=== PATIENT | male | born 1975 | race Caucasian/White ===

== ENCOUNTER 2024-07-08 10:29 | Inpatient (IN) | payer SELFPAY ==
[~2024-07-08 10:29] MED LIST: Iopamidol-370 76% 500 ML MDV (1 ML CHARGE) ONE
[2024-07-08 11:45] LABS: #Basophils 0.06 10x3/uL (0.0-0.2); #Eosinophils Less than 0.03 10x3/uL (0.0-0.7); %Basophils 0.4 % (0.0-1.0); %Eosinophils 0.1 % (0.0-10.0); %Lymphocytes 6.7 % (21.0-51.0); %Monocytes 7.9 % (0.0-10.0); %Neutrophils 84.4 % (42.0-75.0); Hematocrit 46.2 % (42.0-52.0); Hemoglobin 16.3 g/dL (14.0-18.0); Mean Corpuscular HGB CONC 35.3 g/dL (32.0-36.0); Mean Corpuscular Hemoglobin 29.5 pg (27.0-31.0); Mean Corpuscular Volume 83.7 fL (78.0-98.0); Mean Platelet Volume 10.1 fL (7.4-10.4); Platelet Count 291 10x3/uL (130-400); Red Blood Cell (RBC) Count 5.52 mill/uL (4.70-6.10)
[2024-07-08 12:05] LABS: ALT (SGPT) 14 U/L (8-55); AST (SGOT) 9 U/L (5-34); Albumin 3.5 g/dL (3.5-5.0); Alkaline Phosphatase 99 U/L (40-110); Anion Gap 20 mmol/L (10-20); BUN (Urea Nitrogen) 14 mg/dL (8.9-20.6); Bilirubin, Total 1.5 mg/dL (0.2-1.2); Calc. Creatinine Clearance 0 mL/min (70-130); Calcium 9.8 mg/dL (7.8-10.44); Carbon Dioxide 17 mmol/L (22-29); Chloride 97 mmol/L (98-107); Estimated GFR 71; Globulin 4.2 g/dL (2.4-3.5); Glucose 295 mg/dL (70-105); Lipase 15 U/L (8-78); Potassium 4.7 mmol/L (3.5-5.1); Protein, Total 7.7 g/dL (6.0-8.3); Sodium 129 mmol/L (136-145)
[2024-07-08] MEDS ORDERED: Ketorolac Tromethamine 30 MG (1 mL) VIAL ONE (12:24)
[2024-07-08] MEDS ORDERED: CEFAZOLIN 2 GM VIAL ONE (13:19)
[2024-07-08 13:23] LABS: Actual Bicarbonate (HCO3v) 20.8 mEq/L (22-28); Analyzer IN Cardio ER; Base Excess -3.5 mEq/L (-2.0 to +3.0); Calcium, Ionized (venous) 1.13 mmol/L (1.16-1.32); Chloride (VBG) 95 mmol/L (98-106); Hematocrit-VBG 47 % (42.0-52.0); Hemoglobin (Hb) 15.9 g/dL (13.1-17.2); Potassium (VBG) 4.53 mmol/L (3.70-5.30); Sodium 130 mmol/L (133-146); pH (venous) 7.386 (7.32-7.43)
[2024-07-08] MEDS ORDERED: Insulin Regular, Human 100 UNIT/ML 10 ML VIAL SC PRN (13:29)
[2024-07-08] MEDS ORDERED: Glucagon 1 MG/ML KIT IM PRN (13:29)
[2024-07-08] MEDS ORDERED: Dextrose 50% Abboject 50 ML SYRINGE SLOW IVP PRN (13:29)
[2024-07-08] MEDS ORDERED: Ondansetron PF 4 MG/2 ML Vial IVP PRN (13:29)
[2024-07-08] MEDS ORDERED: Dextrose 5% in Water 1,000 ML IV PRN (13:29)
[2024-07-08] MEDS ORDERED: Cefepime 2 GM VIAL ONE (13:50)
[2024-07-08] MEDS ORDERED: Sodium Chloride 0.9% 0 ML ONE (13:50)
[2024-07-08] MEDS ORDERED: Piperacillin/Tazobactam 3.375 GM VIAL ONE (15:31)
[2024-07-08] MEDS ORDERED: Sodium Chloride 0.9% 100 ML ONE (15:31)
[2024-07-08] MEDS ORDERED: Insulin Regular, Human 100 UNIT/ML 10 ML VIAL ONE (16:04)
[2024-07-08] MEDS ORDERED: PROPOFOL 20 ML ONE (16:05)
[2024-07-08] MEDS ORDERED: fentaNYL PF 100 MCG/2 ML SYRINGE ONE (16:05)
[2024-07-08] MEDS ORDERED: Lidocaine 1% PF 5 ML VIAL ONE (16:13)
[2024-07-08] MEDS ORDERED: Rocuronium Bromide 10 MG/ML (10ML VIAL) ONE (16:13)
[2024-07-08] MEDS ORDERED: Morphine Sulfate 2 MG/ML SYRINGE SLOW IVP PRN (17:03)
[2024-07-08] MEDS ORDERED: Ondansetron HCl/PF 4 MG/2 ML Vial IVP PRN (17:03)
[2024-07-08] MEDS ORDERED: PACU-Morphine 4MG/ML VIAL SLOW IVP PRN (17:03)
[2024-07-08] MEDS ORDERED: Promethazine HCl 25 MG/ML VIAL IM PRN (17:03)
[2024-07-08] MEDS ORDERED: HYDROmorphone 2 MG/ML VIAL SLOW IVP PRN (17:03)
[2024-07-08] MEDS ORDERED: Ondansetron PF 4 MG/2 ML Vial ONE (17:08)
[2024-07-08] MEDS ORDERED: SUGAMMADEX SODIUM 200 MG/2 ML VIAL ONE (17:12)
[2024-07-08] MEDS ORDERED: Piperacillin/Tazobactam 3.375 GM in Sodium Chloride 0.9% 100 ML IVPB SCH (18:00)
[2024-07-08] MEDS ORDERED: fentaNYL 50 mcg/mL 1 mL Vial ONE (18:09)
[2024-07-08 19:39] VITALS: BMI 29.9
[2024-07-08] MEDS: Vancomycin (BATCH) 2 GM in Premix 1 BAG IVPB SCH (19:47)
[2024-07-08] MEDS: Piperacillin/Tazobactam 3.375 GM in Sodium Chloride 0.9% 100 ML IVPB SCH ×2 (19:48→20:08)
[2024-07-08] MEDS: Sodium Chloride 0.9% 1,000 ML IV SCH (19:58)
[2024-07-08] MEDS: Famotidine 20 MG TAB PO SCH (20:02)
[2024-07-08] MEDS: Acetaminophen 325 MG TAB PO SCH (20:03)
[2024-07-08] MEDS: traMADol HCl 50 MG TAB PO SCH (20:07)
[2024-07-08] MEDS: Insulin Regular, Human 100 UNIT/ML 10 ML VIAL SC PRN (20:08)
[2024-07-09] MEDS: Morphine 2 MG/ML VIAL SLOW IVP PRN (04:01)
[2024-07-09 06:05] LABS: INR-International Normal Ratio 1.2; PTT 34.6 sec (22.9-36.1); Prothrombin Time 15.4 sec (12.0-14.7)
[2024-07-09] MEDS: Insulin Regular, Human 100 UNIT/ML 10 ML VIAL SC PRN (06:07)
[2024-07-09 06:12] LABS: #Basophils 0.04 10x3/uL (0.0-0.2); %Basophils 0.3 % (0.0-1.0); %Eosinophils 0.3 % (0.0-10.0); %Lymphocytes 8.8 % (21.0-51.0); %Monocytes 8.6 % (0.0-10.0); %Neutrophils 81.4 % (42.0-75.0); Hematocrit 36.2 % (42.0-52.0); Hemoglobin 12.5 g/dL (14.0-18.0); Mean Corpuscular HGB CONC 34.5 g/dL (32.0-36.0); Mean Corpuscular Hemoglobin 29.5 pg (27.0-31.0); Mean Corpuscular Volume 85.4 fL (78.0-98.0); Mean Platelet Volume 10.7 fL (7.4-10.4); Platelet Count 197 10x3/uL (130-400); RBC Distribution Width 12.1 % (11.5-14.5); Red Blood Cell (RBC) Count 4.24 mill/uL (4.70-6.10)
[2024-07-09 06:48] LABS: Anion Gap 15 mmol/L (10-20); BUN (Urea Nitrogen) 13 mg/dL (8.9-20.6); Calc. Creatinine Clearance 121 mL/min (70-130); Calcium 8.3 mg/dL (7.8-10.44); Carbon Dioxide 21 mmol/L (22-29); Chloride 102 mmol/L (98-107); Estimated GFR 95; Glucose 217 mg/dL (70-105); Potassium 3.9 mmol/L (3.5-5.1); Sodium 134 mmol/L (136-145)
[2024-07-09] MEDS: HYDROmorphone 0.5 MG/0.5 ML SYRINGE SLOW IVP SCH (08:30)
[2024-07-09] MEDS: Apixaban 2.5 MG TAB PO SCH (08:30)
[2024-07-09] MEDS: Rivaroxaban 10 MG TAB PO SCH (16:18)
[2024-07-09] MEDS ORDERED: DAPTOmycin 600 MG in Sodium Chloride 0.9% 50 ML IVPB SCH (19:15)
[2024-07-09] MEDS: Insulin Glargine 30 UNITS/0.3 ML VIAL SC SCH (21:11)
[2024-07-09] MEDS: DAPTOmycin 600 MG in Sodium Chloride 0.9% 50 ML IVPB SCH (22:11)
[2024-07-10 07:03] LABS: #Basophils Less than 0.03 10x3/uL (0.0-0.2); %Basophils 0.2 % (0.0-1.0); %Eosinophils 2.4 % (0.0-10.0); %Lymphocytes 9.9 % (21.0-51.0); %Monocytes 9.2 % (0.0-10.0); %Neutrophils 77.6 % (42.0-75.0); Hematocrit 35.3 % (42.0-52.0); Hemoglobin 12.2 g/dL (14.0-18.0); Mean Corpuscular HGB CONC 34.6 g/dL (32.0-36.0); Mean Corpuscular Hemoglobin 29.3 pg (27.0-31.0); Mean Corpuscular Volume 84.9 fL (78.0-98.0); Platelet Count 209 10x3/uL (130-400); RBC Distribution Width 12.2 % (11.5-14.5); Red Blood Cell (RBC) Count 4.16 mill/uL (4.70-6.10)
[2024-07-10] MEDS ORDERED: HYDROcodone/Acetaminophen 10/325 mg Tablet PO PRN (07:12)
[2024-07-10 07:27] LABS: Anion Gap 15 mmol/L (10-20); BUN (Urea Nitrogen) 13 mg/dL (8.9-20.6); CK (CPK) 38 U/L (30-200); Calc. Creatinine Clearance 148 mL/min (70-130); Calcium 8.4 mg/dL (7.8-10.44); Carbon Dioxide 19 mmol/L (22-29); Chloride 101 mmol/L (98-107); Estimated GFR 110; Glucose 174 mg/dL (70-105); Potassium 3.4 mmol/L (3.5-5.1); Sodium 132 mmol/L (136-145)
[2024-07-10] MEDS ORDERED: Electrolyte Replacement Protocol 1 EACH FS SCH (08:45)
[2024-07-10] MEDS ORDERED: Electrolyte Replacement Protocol FS PRN (08:45)
[2024-07-10] MEDS: Potassium Chloride 20 MEQ TAB PO SCH (09:40)
[2024-07-10 12:00] VITALS: BMI 29.9
[2024-07-10] MEDS: Polyethylene Glycol 3350 17 GM Packet PO SCH (13:35)
[2024-07-10 14:45] LABS: Potassium 3.6 mmol/L (3.5-5.1)
[2024-07-10] MEDS ORDERED: fentaNYL 50 mcg/mL 1 mL Vial ONE ×2 (16:03→18:01)
[2024-07-10] MEDS ORDERED: Famotidine/PF 20 mg/2ml Vial ONE (16:04)
[2024-07-10] MEDS ORDERED: Sodium Chloride 0.9% 100 ML ONE (17:57)
[2024-07-10] MEDS ORDERED: Piperacillin/Tazobactam 3.375 GM VIAL ONE (17:57)
[2024-07-10] MEDS ORDERED: Dexamethasone 20 MG/5 ML VIAL ONE (18:00)
[2024-07-10] MEDS ORDERED: PROPOFOL 20 ML ONE (18:00)
[2024-07-10] MEDS ORDERED: Ondansetron PF 4 MG/2 ML Vial ONE (18:00)
[2024-07-10] MEDS ORDERED: Rocuronium Bromide 10 MG/ML (10ML VIAL) ONE (18:00)
[2024-07-10] MEDS ORDERED: Lidocaine 1% PF 5 ML VIAL ONE (18:00)
[2024-07-10] MEDS ORDERED: Midazolam HCl 2 mg/2 ml Vial ONE (18:01)
[2024-07-10] MEDS ORDERED: fentaNYL PF 100 MCG/2 ML SYRINGE ONE (18:15)
[2024-07-10] MEDS ORDERED: SUGAMMADEX SODIUM 200 MG/2 ML VIAL ONE (18:47)
[2024-07-10] MEDS ORDERED: HYDROmorphone 0.5 MG/0.5 ML SYRINGE ONE (18:51)
[2024-07-10] MEDS ORDERED: Promethazine HCl 25 MG/ML VIAL IM PRN (19:05)
[2024-07-10] MEDS ORDERED: HYDROmorphone 2 MG/ML VIAL SLOW IVP PRN (19:05)
[2024-07-10] MEDS ORDERED: Ondansetron HCl/PF 4 MG/2 ML Vial IVP PRN (19:05)
[2024-07-10] MEDS: Insulin Glargine 30 UNITS/0.3 ML VIAL SC SCH (21:04)
[2024-07-10] MEDS: traMADol HCl 50 MG TAB PO PRN (21:04)
[2024-07-10] MEDS: Morphine 2 MG/ML VIAL SLOW IVP PRN (21:05)
[2024-07-10] MEDS ORDERED: Acetaminophen/Codeine 30-300mg Tablet PO PRN (22:26)
[2024-07-10] MEDS: Acetaminophen/Codeine 30-300mg Tablet PO PRN (23:45)
[2024-07-11 06:48] LABS: #Basophils Less than 0.03 10x3/uL (0.0-0.2); %Basophils 0.2 % (0.0-1.0); %Eosinophils 2.3 % (0.0-10.0); %Lymphocytes 12.5 % (21.0-51.0); %Monocytes 8.7 % (0.0-10.0); %Neutrophils 75.8 % (42.0-75.0); Hematocrit 32.6 % (42.0-52.0); Hemoglobin 11.2 g/dL (14.0-18.0); Mean Corpuscular HGB CONC 34.4 g/dL (32.0-36.0); Mean Corpuscular Hemoglobin 29.6 pg (27.0-31.0); Mean Platelet Volume 10.5 fL (7.4-10.4); Platelet Count 234 10x3/uL (130-400); RBC Distribution Width 12.5 % (11.5-14.5); Red Blood Cell (RBC) Count 3.79 mill/uL (4.70-6.10)
[2024-07-11 07:04] LABS: Anion Gap 12 mmol/L (10-20); BUN (Urea Nitrogen) 10 mg/dL (8.9-20.6); Calc. Creatinine Clearance 141 mL/min (70-130); Calcium 7.7 mg/dL (7.8-10.44); Carbon Dioxide 24 mmol/L (22-29); Chloride 103 mmol/L (98-107); Estimated GFR 109; Glucose 198 mg/dL (70-105); Potassium 3.8 mmol/L (3.5-5.1); Sodium 135 mmol/L (136-145)
[2024-07-11] MEDS: Polyethylene Glycol 3350 17 GM Packet PO SCH (09:09)
[2024-07-11] MEDS: HYDROmorphone 0.5 MG/0.5 ML SYRINGE SLOW IVP SCH (11:01)
[2024-07-11] MEDS ORDERED: Lidocaine 4% Topical Sol 50 ML BOT TOP PRN (13:56)
[2024-07-11] MEDS: Insulin Glargine 30 UNITS/0.3 ML VIAL SC SCH (20:53)
[2024-07-12 07:05] LABS: #Basophils 0.03 10x3/uL (0.0-0.2); %Basophils 0.5 % (0.0-1.0); %Eosinophils 4.3 % (0.0-10.0); %Lymphocytes 18.8 % (21.0-51.0); %Monocytes 9.8 % (0.0-10.0); %Neutrophils 65.8 % (42.0-75.0); Hematocrit 33.7 % (42.0-52.0); Hemoglobin 11.3 g/dL (14.0-18.0); Mean Corpuscular HGB CONC 33.5 g/dL (32.0-36.0); Mean Corpuscular Hemoglobin 29.4 pg (27.0-31.0); Mean Corpuscular Volume 87.5 fL (78.0-98.0); Mean Platelet Volume 10.8 fL (7.4-10.4); Platelet Count 273 10x3/uL (130-400); RBC Distribution Width 12.3 % (11.5-14.5); Red Blood Cell (RBC) Count 3.85 mill/uL (4.70-6.10)
[2024-07-12 07:39] LABS: Anion Gap 12 mmol/L (10-20); BUN (Urea Nitrogen) 10 mg/dL (8.9-20.6); Calc. Creatinine Clearance 148 mL/min (70-130); Calcium 8.3 mg/dL (7.8-10.44); Carbon Dioxide 25 mmol/L (22-29); Chloride 103 mmol/L (98-107); Estimated GFR 110; Glucose 216 mg/dL (70-105); Potassium 3.7 mmol/L (3.5-5.1); Sodium 136 mmol/L (136-145)
[2024-07-12] MEDS: Lidocaine 4% Topical Sol 50 ML BOT TOP SCH (14:20)
[2024-07-12] MEDS: Morphine 4 MG/ML VIAL SLOW IVP PRN (14:21)
[2024-07-12] MEDS: Polyethylene Glycol 3350 17 GM Packet PO SCH (20:23)
[2024-07-12] MEDS: Senokot S 8.6-50 MG TAB PO SCH (20:23)
[2024-07-13] MEDS: Insulin Glargine 30 UNITS/0.3 ML VIAL SC SCH (07:50)
[2024-07-13 12:42] LABS: #Basophils 0.05 10x3/uL (0.0-0.2); %Basophils 0.9 % (0.0-1.0); %Eosinophils 4.6 % (0.0-10.0); %Lymphocytes 24.9 % (21.0-51.0); %Monocytes 9.9 % (0.0-10.0); %Neutrophils 55.7 % (42.0-75.0); Hematocrit 37.3 % (42.0-52.0); Hemoglobin 12.6 g/dL (14.0-18.0); Mean Corpuscular HGB CONC 33.8 g/dL (32.0-36.0); Mean Corpuscular Hemoglobin 28.9 pg (27.0-31.0); Mean Corpuscular Volume 85.6 fL (78.0-98.0); Mean Platelet Volume 10.5 fL (7.4-10.4); Platelet Count 333 10x3/uL (130-400); RBC Distribution Width 12.3 % (11.5-14.5); Red Blood Cell (RBC) Count 4.36 mill/uL (4.70-6.10)
[2024-07-13 13:13] LABS: Anion Gap 14 mmol/L (10-20); BUN (Urea Nitrogen) 12 mg/dL (8.9-20.6); Calc. Creatinine Clearance 145 mL/min (70-130); Carbon Dioxide 24 mmol/L (22-29); Chloride 103 mmol/L (98-107); Estimated GFR 109; Glucose 217 mg/dL (70-105); Potassium 3.8 mmol/L (3.5-5.1); Sodium 137 mmol/L (136-145)
[2024-07-14 08:02] LABS: #Basophils 0.05 10x3/uL (0.0-0.2); %Basophils 0.9 % (0.0-1.0); %Eosinophils 4.2 % (0.0-10.0); %Monocytes 8.1 % (0.0-10.0); %Neutrophils 56.9 % (42.0-75.0); Hematocrit 36.5 % (42.0-52.0); Hemoglobin 11.9 g/dL (14.0-18.0); Mean Corpuscular HGB CONC 32.6 g/dL (32.0-36.0); Mean Corpuscular Hemoglobin 29.2 pg (27.0-31.0); Mean Corpuscular Volume 89.5 fL (78.0-98.0); Platelet Count 359 10x3/uL (130-400); RBC Distribution Width 12.4 % (11.5-14.5); Red Blood Cell (RBC) Count 4.08 mill/uL (4.70-6.10)
[2024-07-14 08:20] LABS: Anion Gap 11 mmol/L (10-20); BUN (Urea Nitrogen) 10 mg/dL (8.9-20.6); Calc. Creatinine Clearance 143 mL/min (70-130); Calcium 8.8 mg/dL (7.8-10.44); Carbon Dioxide 27 mmol/L (22-29); Chloride 104 mmol/L (98-107); Estimated GFR 109; Glucose 185 mg/dL (70-105); Sodium 138 mmol/L (136-145)
[2024-07-14] MEDS: Clindamycin 150 MG CAP PO SCH (11:53)
[2024-07-14] MEDS: Amoxicillin/Potassium Clav 875 MG TAB PO SCH (21:51)
[2024-07-15 06:08] LABS: Hematocrit 39.4 % (42.0-52.0); Hemoglobin 12.9 g/dL (14.0-18.0); Mean Corpuscular HGB CONC 32.7 g/dL (32.0-36.0); Mean Corpuscular Hemoglobin 29.1 pg (27.0-31.0); Mean Corpuscular Volume 88.9 fL (78.0-98.0); Platelet Count 426 10x3/uL (130-400); RBC Distribution Width 12.2 % (11.5-14.5); Red Blood Cell (RBC) Count 4.43 mill/uL (4.70-6.10)
[2024-07-15 06:11] LABS: Anion Gap 10 mmol/L (10-20); BUN (Urea Nitrogen) 10 mg/dL (8.9-20.6); Calc. Creatinine Clearance 147 mL/min (70-130); Calcium 9.1 mg/dL (7.8-10.44); Carbon Dioxide 26 mmol/L (22-29); Chloride 105 mmol/L (98-107); Estimated GFR 110; Glucose 163 mg/dL (70-105); Potassium 4.3 mmol/L (3.5-5.1); Sodium 137 mmol/L (136-145)
[2024-07-15 08:05] LABS: Band 8 % (5-11); Eosinophils 7 % (0-10); Large Platelets 4.9 % (0-5); Lymphocytes 25 % (21-51); Monocytes 5 % (0-10); Neutrophil 52 % (42-75); Nucleated RBC (Manual Ct) 1 % (0); Platelet Adequacy Comment Platelets Normal; RBC Morphology Within Normal Limits; Reactive Lymphocytes 3 % (0-10)
[2024-07-16 06:31] LABS: Hematocrit 39.3 % (42.0-52.0); Hemoglobin 12.9 g/dL (14.0-18.0); Mean Corpuscular HGB CONC 32.8 g/dL (32.0-36.0); Mean Corpuscular Hemoglobin 29.1 pg (27.0-31.0); Mean Corpuscular Volume 88.7 fL (78.0-98.0); Platelet Count 409 10x3/uL (130-400); RBC Distribution Width 12.3 % (11.5-14.5); Red Blood Cell (RBC) Count 4.43 mill/uL (4.70-6.10)
[2024-07-16 06:34] LABS: Anion Gap 12 mmol/L (10-20); BUN (Urea Nitrogen) 12 mg/dL (8.9-20.6); Calc. Creatinine Clearance 124 mL/min (70-130); Calcium 9.2 mg/dL (7.8-10.44); Carbon Dioxide 27 mmol/L (22-29); Chloride 102 mmol/L (98-107); Estimated GFR 98; Glucose 144 mg/dL (70-105); Sodium 137 mmol/L (136-145)
[2024-07-16 08:14] LABS: Band 7 % (5-11); Eosinophils 2 % (0-10); Lymphocytes 21 % (21-51); Monocytes 10 % (0-10); Neutrophil 60 % (42-75); Platelet Adequacy Comment Platelets Normal; Polychromasia SLIGHT = 2-3 cells HPF (0-2)
[2024-07-16 11:45] VITALS: BP 163/83; TEMP 98.4
== END 2024-07-16 14:58 | disposition home or self-care (01) | DRG 264 ==
LOC: ERS 10:29 → SDC 14:05 → T4-B 14:05
PROVIDERS: ADMIT Family Medicine; ATTEND Internal Medicine
PROC: 0JBB0ZZ Excision of Perineum Subcutaneous Tissue and Fascia, Open Approach (ICD-10-PCS; principal; 2024-07-08)
PROC: 0JDB0ZZ Extraction of Perineum Subcutaneous Tissue and Fascia, Open Approach (ICD-10-PCS; 2024-07-10)
PROC: 0J9B0ZZ Drainage of Perineum Subcutaneous Tissue and Fascia, Open Approach (ICD-10-PCS; 2024-07-10)
DX: E10.52 Type 1 diabetes mellitus with diabetic peripheral angiopathy with gangrene (principal); E87.1 Hypo-osmolality and hyponatremia; L02.215 Cutaneous abscess of perineum; N17.9 Acute kidney failure, unspecified; N49.3 Fournier gangrene; B95.1 Streptococcus, group B, as the cause of diseases classified elsewhere; E10.65 Type 1 diabetes mellitus with hyperglycemia; Z95.1 Presence of aortocoronary bypass graft; Z98.890 Other specified postprocedural states; Z91.014 Allergy to mammalian meats; Z91.013 Allergy to seafood; Z88.1 Allergy status to other antibiotic agents; Z91.018 Allergy to other foods; Z79.4 Long term (current) use of insulin; Z91.148 Patient's other noncompliance with medication regimen for other reason
CPT/HCPCS: 36415; 36416; 74177; 80048; 80053; 82010; 82550; 82805; 83036; 83605; 83690; 85025; 85610; 85730; 86141; 87070; 87077; 87186; 87205; 93005; 93010; 96374; 96375; 97139; J0692; J0878; J1100; J1170; J1815; J1885; J2250; J2272; J2405; J2543; J2704; J3010; J3370; J3490; J7030; Q9967

== ENCOUNTER 2024-07-20 14:44 | Emergency (ER) | payer SELFPAY ==
[2024-07-20 15:33] LABS: #Basophils 0.07 10x3/uL (0.0-0.2); %Basophils 0.5 % (0.0-1.0); %Eosinophils 2.2 % (0.0-10.0); %Lymphocytes 29.8 % (21.0-51.0); %Monocytes 5.3 % (0.0-10.0); %Neutrophils 60.9 % (42.0-75.0); Hematocrit 42.5 % (42.0-52.0); Hemoglobin 14.9 g/dL (14.0-18.0); Mean Corpuscular HGB CONC 35.1 g/dL (32.0-36.0); Mean Corpuscular Hemoglobin 29.3 pg (27.0-31.0); Mean Corpuscular Volume 83.7 fL (78.0-98.0); Mean Platelet Volume 9.8 fL (7.4-10.4); Platelet Count 514 10x3/uL (130-400); RBC Distribution Width 12.3 % (11.5-14.5); Red Blood Cell (RBC) Count 5.08 mill/uL (4.70-6.10)
[2024-07-20] MEDS ORDERED: Morphine 4 MG/ML VIAL ONE (15:39)
[2024-07-20] MEDS ORDERED: Ketorolac Tromethamine 30 MG (1 mL) VIAL ONE (15:39)
[2024-07-20 15:43] LABS: ALT (SGPT) 38 U/L (8-55); AST (SGOT) 28 U/L (5-34); Albumin 3.7 g/dL (3.5-5.0); Alkaline Phosphatase 98 U/L (40-110); Anion Gap 17 mmol/L (10-20); BUN (Urea Nitrogen) 18 mg/dL (8.9-20.6); Bilirubin, Total 0.3 mg/dL (0.2-1.2); Calc. Creatinine Clearance 0 mL/min (70-130); Calcium 9.6 mg/dL (7.8-10.44); Carbon Dioxide 19 mmol/L (22-29); Chloride 105 mmol/L (98-107); Estimated GFR 100; Globulin 4.3 g/dL (2.4-3.5); Glucose 122 mg/dL (70-105); Sodium 137 mmol/L (136-145)
== END 2024-07-20 18:31 | disposition home or self-care (01) ==
LOC: ERS 14:44
DX: L08.9 Local infection of the skin and subcutaneous tissue, unspecified (principal); E11.9 Type 2 diabetes mellitus without complications
CPT/HCPCS: 80053; 85025; 96374; 96375; J1885; J2272

== ENCOUNTER 2024-08-03 18:57 | Emergency (ER) | payer SELFPAY ==
[2024-08-03 19:59] LABS: #Basophils 0.03 10x3/uL (0.0-0.2); %Basophils 0.3 % (0.0-1.0); %Lymphocytes 12.2 % (21.0-51.0); %Neutrophils 80.3 % (42.0-75.0); Hematocrit 41.9 % (42.0-52.0); Hemoglobin 14.3 g/dL (14.0-18.0); Mean Corpuscular HGB CONC 34.1 g/dL (32.0-36.0); Mean Corpuscular Hemoglobin 29.4 pg (27.0-31.0); Mean Platelet Volume 10.3 fL (7.4-10.4); Platelet Count 273 10x3/uL (130-400); Red Blood Cell (RBC) Count 4.87 mill/uL (4.70-6.10)
[2024-08-03 20:18] LABS: ALT (SGPT) 23 U/L (8-55); AST (SGOT) 21 U/L (5-34); Albumin 3.8 g/dL (3.5-5.0); Alkaline Phosphatase 110 U/L (40-110); Anion Gap 17 mmol/L (10-20); BUN (Urea Nitrogen) 8 mg/dL (8.9-20.6); Calc. Creatinine Clearance 0 mL/min (70-130); Calcium 9.6 mg/dL (7.8-10.44); Carbon Dioxide 22 mmol/L (22-29); Chloride 105 mmol/L (98-107); Estimated GFR 112; Globulin 3.9 g/dL (2.4-3.5); Glucose 92 mg/dL (70-105); Protein, Total 7.7 g/dL (6.0-8.3); Sodium 140 mmol/L (136-145)
[2024-08-03] MEDS ORDERED: Ketorolac Tromethamine 30 MG (1 mL) VIAL ONE (20:48)
[2024-08-03] MEDS ORDERED: Morphine 2 MG/ML VIAL ONE (20:49)
[2024-08-03 21:01] LABS: Bacteria/HPF None Seen HPF (None Seen); Bilirubin Negative (Negative); Blood, Urine Negative (Negative); CAUTI Indications for Culture Dysuria,urgency,freq; Clarity Clear (Clear); Glucose, Urine (Dipstick) Normal (Negative); Ketone, Urine 10 mg/dL (Negative); Leukocyte Negative Leu/uL (Negative); Nitrite Negative (Negative); Protein, Urine (Dipstick) Negative (Neg-Trace); RBC/HPF None Seen HPF (0-3); Squamous Epithelial 0-3 HPF (0-3); Urobilinogen Normal mg/dL (Less than 2); WBC/HPF 0-3 HPF (0-3)
[2024-08-03 21:02] LABS: Specific Gravity, Urine 1.057 (1.002-1.036)
[2024-08-03 21:03] LABS: Urine Culture Reflex No No
[2024-08-03] MEDS ORDERED: Lidocaine 1% w/Epinephrine 1:100K 20 ML VIAL ONE (21:34)
== END 2024-08-03 22:48 | disposition home or self-care (01) ==
LOC: ERS 18:57
DX: N49.2 Inflammatory disorders of scrotum (principal); E11.9 Type 2 diabetes mellitus without complications
CPT/HCPCS: 72193; 80053; 81001; 83605; 85025; 87040; 87070; 87205; 96374; 96375; J1885; J2272

== ENCOUNTER 2024-08-06 23:52 | Emergency (ER) | payer SELFPAY ==
[2024-08-07] MEDS ORDERED: Morphine 4 MG/ML VIAL ONE ×2 (01:01→03:48)
[2024-08-07] MEDS ORDERED: Ondansetron PF 4 MG/2 ML Vial ONE (01:01)
[2024-08-07 01:07] LABS: #Basophils 0.05 10x3/uL (0.0-0.2); %Basophils 0.8 % (0.0-1.0); %Eosinophils 7.8 % (0.0-10.0); %Lymphocytes 35.9 % (21.0-51.0); %Monocytes 6.8 % (0.0-10.0); %Neutrophils 48.4 % (42.0-75.0); Hematocrit 39.2 % (42.0-52.0); Hemoglobin 13.7 g/dL (14.0-18.0); Mean Corpuscular HGB CONC 34.9 g/dL (32.0-36.0); Mean Corpuscular Hemoglobin 29.7 pg (27.0-31.0); Mean Platelet Volume 10.2 fL (7.4-10.4); Platelet Count 287 10x3/uL (130-400); RBC Distribution Width 12.8 % (11.5-14.5); Red Blood Cell (RBC) Count 4.61 mill/uL (4.70-6.10)
[2024-08-07 01:21] LABS: ALT (SGPT) 21 U/L (8-55); AST (SGOT) 23 U/L (5-34); Albumin 3.7 g/dL (3.5-5.0); Alkaline Phosphatase 86 U/L (40-110); Anion Gap 13 mmol/L (10-20); BUN (Urea Nitrogen) 17 mg/dL (8.9-20.6); Bilirubin, Total 0.4 mg/dL (0.2-1.2); Calc. Creatinine Clearance 0 mL/min (70-130); Calcium 9.3 mg/dL (7.8-10.44); Carbon Dioxide 21 mmol/L (22-29); Chloride 107 mmol/L (98-107); Estimated GFR 80; Globulin 3.7 g/dL (2.4-3.5); Glucose 115 mg/dL (70-105); Potassium 4.4 mmol/L (3.5-5.1); Protein, Total 7.4 g/dL (6.0-8.3); Sodium 137 mmol/L (136-145)
== END 2024-08-07 04:00 | disposition home or self-care (01) ==
LOC: ERS 23:52
DX: N49.2 Inflammatory disorders of scrotum (principal); E10.9 Type 1 diabetes mellitus without complications
CPT/HCPCS: 74177; 76870; 80053; 83605; 85025; 87040; 93976; 96374; 96375; 96376; J2272; J2405